=== PATIENT | female | born 1950 | race Caucasian/White ===

== ENCOUNTER 2023-01-31 21:33 | Inpatient (IN) | payer MEDICARE, MEDICAID ==
[~2023-01-31] VITALS: Ht 160 cm; Wt 68.0 kg
[~2023-01-31 21:33] MED LIST: ADVIL
[2023-01-31 23:22] LABS: BASOPHILS % 0.5 % (0.0-2.0); EOSINOPHILS % 3.9 % (0.0-5.0); HEMATOCRIT. 28.2 % (36.0-48.0); HEMOGLOBIN. 9.6 g/dL (12.0-16.0); LYMPHOCYTES % 16.1 % (20.0-50.0); MEAN CORPUSCULAR HEMOGLOBIN 35.4 pg (28.0-32.0); MEAN CORPUSCULAR VOLUME 104.4 fL (81.0-99.0); MEAN PLATELET VOLUME 9.6 fl (7.4-10.4); MONOCYTES % 12.2 % (2.0-8.0); NEUTROPHILS % 67.3 % (40.0-76.0); PLATELET 84 x1000/uL (130-400); RED CELL DISTRIBUTION WIDTH 16.8 % (11.6-14.6)
[2023-01-31 23:23] LABS: CHLORIDE 112 mEq/L (98-107)
[2023-01-31 23:34] LABS: ETHANOL BLOOD < 10 mg/dL
[2023-02-01 00:31] LABS: CLARITY URINE CLEAR (CLEAR); COLOR URINE YELLOW (YELLOW); KETONES URINE NEGATIVE (NEGATIVE); LEUKOCYTE ESTERASE URINE TRACE (NEGATIVE); NITRITE URINE NEGATIVE (NEGATIVE); OCCULT BLOOD URINE NEGATIVE (NEGATIVE); PROTEIN URINE NEGATIVE (NEGATIVE); SPECIFIC GRAVITY URINE 1.017 (1.005-1.030)
[2023-02-01] MEDS ORDERED: LACTULOSE 20G/30ML UDC PO NR ×2 (01:45→08:45)
[2023-02-01] MEDS ORDERED: SODIUM CHLORIDE 0.45% 1,000 ML IV NR (04:00)
[2023-02-01] MEDS ORDERED: DEXTROSE 50% WATER 50ML SYRINGE IV PRN (04:00)
[2023-02-01] MEDS ORDERED: ONDANSETRON HCL 4MG/2ML INJ IV PRN (04:00)
[2023-02-01] MEDS ORDERED: IPRATROPIUM/ALBUTEROL 0.5-3(2.5)MG/3ML NEB HHN PRN (04:00)
[2023-02-01] MEDS ORDERED: CLONIDINE 0.1MG TABLET PO PRN (04:00)
[2023-02-01 05:04] LABS: BASOPHILS % 0.3 % (0.0-2.0); EOSINOPHILS % 3.3 % (0.0-5.0); HEMATOCRIT. 28.7 % (36.0-48.0); HEMOGLOBIN. 9.8 g/dL (12.0-16.0); LYMPHOCYTES % 18.2 % (20.0-50.0); MEAN CORPUSCULAR HEMOGLOBIN 35.7 pg (28.0-32.0); MEAN CORPUSCULAR VOLUME 104.2 fL (81.0-99.0); MEAN PLATELET VOLUME 9.8 fl (7.4-10.4); MONOCYTES % 10.4 % (2.0-8.0); NEUTROPHILS % 67.8 % (40.0-76.0); PLATELET 86 x1000/uL (130-400); RED BLOOD CELL COUNT 2.76 mill/uL (4.2-5.4); RED CELL DISTRIBUTION WIDTH 16.5 % (11.6-14.6)
[2023-02-01 05:29] LABS: CHLORIDE 111 mEq/L (98-107)
[2023-02-01 05:38] LABS: INR 1.4; PARTIAL THROMBOPLASTIN TIME 36.6 sec (23.4-31.0); PROTHROMBIN TIME 14.7 sec (9.6-11.0)
[2023-02-01 05:43] LABS: FERRITIN 23 ng/mL (10-291)
[2023-02-01 05:50] LABS: T4 FREE 1.29 ng/dL (0.76-1.46)
[2023-02-01 05:53] LABS: VITAMIN B12 SERUM 817 pg/mL (211-911)
[2023-02-01] MEDS ORDERED: LACTULOSE 20G/30ML UDC PO SCH (06:00)
[2023-02-01] MEDS: INSULIN LISPRO 100 UNITS/ML SUBCUT SCH ×4 (08:20→21:00)
[2023-02-01] MEDS: LEVOTHYROXINE SODIUM 125MCG TABLET PO SCH (08:49)
[2023-02-01] MEDS: PANTOPRAZOLE SODIUM 40 MG/VIAL IV SCH (09:00)
[2023-02-01] MEDS: RIFAXIMIN 550 MG TABLET PO SCH ×2 (09:00→21:55)
[2023-02-01] MEDS: BLOOD SUGAR DIAGNOSTIC STRIP TEST SCH ×4 (09:00→21:00)
[2023-02-01 11:30] VITALS: BP 135/69
[2023-02-01] MEDS: LACTULOSE 20G/30ML UDC PO SCH ×2 (14:00→22:00)
[2023-02-01 16:00] VITALS: BP 135/69
[2023-02-01] MEDS: ACETAMINOPHEN 650MG/20.3ML UDC GT PRN (23:09)
[2023-02-02] MEDS: LACTULOSE 20G/30ML UDC PO SCH ×3 (06:00→21:51)
[2023-02-02] MEDS: BLOOD SUGAR DIAGNOSTIC STRIP TEST SCH ×4 (06:54→21:51)
[2023-02-02] MEDS: LEVOTHYROXINE SODIUM 125MCG TABLET PO SCH (07:05)
[2023-02-02] MEDS: INSULIN LISPRO 100 UNITS/ML SUBCUT SCH ×4 (07:50→21:00)
[2023-02-02 08:00] VITALS: BP 107/45
[2023-02-02] MEDS: PANTOPRAZOLE SODIUM 40 MG/VIAL IV SCH (09:00)
[2023-02-02] MEDS: RIFAXIMIN 550 MG TABLET PO SCH ×2 (09:00→21:50)
[2023-02-02 12:00] VITALS: BP 126/43
[2023-02-02 16:00] VITALS: BP 115/57
[2023-02-03] MEDS: LACTULOSE 20G/30ML UDC PO SCH ×3 (06:00→21:35)
[2023-02-03] MEDS: INSULIN LISPRO 100 UNITS/ML SUBCUT SCH ×4 (07:50→21:44)
[2023-02-03 08:00] VITALS: BP 116/53
[2023-02-03] MEDS: BLOOD SUGAR DIAGNOSTIC STRIP TEST SCH ×4 (08:04→21:32)
[2023-02-03] MEDS: LEVOTHYROXINE SODIUM 125MCG TABLET PO SCH (08:16)
[2023-02-03] MEDS: PANTOPRAZOLE 40MG DR TABLET PO SCH (08:16)
[2023-02-03] MEDS: RIFAXIMIN 550 MG TABLET PO SCH ×2 (08:17→21:35)
[2023-02-03 12:00] VITALS: BP 126/59
[2023-02-03 12:32] LABS: BASOPHILS % 0.5 % (0.0-2.0); EOSINOPHILS % 2.9 % (0.0-5.0); HEMATOCRIT. 29.3 % (36.0-48.0); HEMOGLOBIN. 9.9 g/dL (12.0-16.0); LYMPHOCYTES % 18.9 % (20.0-50.0); MEAN CORPUSCULAR HEMOGLOBIN 35.3 pg (28.0-32.0); MEAN CORPUSCULAR VOLUME 104.2 fL (81.0-99.0); MEAN PLATELET VOLUME 9.2 fl (7.4-10.4); NEUTROPHILS % 66.7 % (40.0-76.0); PLATELET 86 x1000/uL (130-400); RED BLOOD CELL COUNT 2.81 mill/uL (4.2-5.4); RED CELL DISTRIBUTION WIDTH 16.4 % (11.6-14.6)
[2023-02-03 13:34] LABS: CHLORIDE 111 mEq/L (98-107)
[2023-02-03 16:00] VITALS: BP 129/64
[2023-02-03 20:00] VITALS: BP 121/43
[2023-02-03] MEDS ORDERED: ZOLPIDEM TARTRATE 5MG TABLET PO PRN (22:30)
[2023-02-03] MEDS ORDERED: NALOXONE HCL 0.4MG/ML VIAL IV PRN (22:30)
[2023-02-03] MEDS: HYDROCODONE/ACETAMINOPHEN 5/325MG TABLET PO PRN (22:38)
[2023-02-04] VITALS: BP 113/62
[2023-02-04 04:00] VITALS: BP 113/49
[2023-02-04 05:37] LABS: CHLORIDE 110 mEq/L (98-107)
[2023-02-04 05:55] LABS: BASOPHILS % 0.4 % (0.0-2.0); EOSINOPHILS % 3.7 % (0.0-5.0); HEMATOCRIT. 29.9 % (36.0-48.0); HEMOGLOBIN. 10.3 g/dL (12.0-16.0); LYMPHOCYTES % 18.1 % (20.0-50.0); MEAN CORPUSCULAR HEMOGLOBIN 35.9 pg (28.0-32.0); MEAN CORPUSCULAR VOLUME 103.6 fL (81.0-99.0); MEAN PLATELET VOLUME 9.9 fl (7.4-10.4); MONOCYTES % 12.7 % (2.0-8.0); NEUTROPHILS % 65.1 % (40.0-76.0); PLATELET 92 x1000/uL (130-400); RED BLOOD CELL COUNT 2.89 mill/uL (4.2-5.4); RED CELL DISTRIBUTION WIDTH 16.3 % (11.6-14.6)
[2023-02-04] MEDS: LACTULOSE 20G/30ML UDC PO SCH (06:00)
[2023-02-04] MEDS ORDERED: LACTULOSE ENEMA 1,000ML BOTTLE PR ONE (07:00)
[2023-02-04] MEDS: BLOOD SUGAR DIAGNOSTIC STRIP TEST SCH ×2 (07:20→12:20)
[2023-02-04] MEDS: INSULIN LISPRO 100 UNITS/ML SUBCUT SCH ×2 (07:50→13:31)
[2023-02-04 08:00] VITALS: BP 117/63
[2023-02-04] MEDS: LEVOTHYROXINE SODIUM 125MCG TABLET PO SCH (08:57)
[2023-02-04] MEDS: PANTOPRAZOLE 40MG DR TABLET PO SCH (08:57)
[2023-02-04] MEDS: RIFAXIMIN 550 MG TABLET PO SCH (08:57)
[2023-02-04] MEDS ORDERED: LACTULOSE 300 ML in WATER FOR IRRIGATION,STERILE 700 ML PR SCH (09:00)
[2023-02-04] MEDS: ACETAMINOPHEN 650MG/20.3ML UDC GT PRN (09:01)
[2023-02-04] MEDS ORDERED: PANT40TA51 PO (10:16)
[2023-02-04] MEDS ORDERED: RIFA550T PO (10:16)
[2023-02-04] MEDS ORDERED: LEVO125T8 PO (10:16)
[2023-02-04] MEDS ORDERED: LACT10SO7 PO (10:16)
[2023-02-04 11:30] VITALS: BP 117/68
[2023-02-04 12:00] VITALS: BP 102/60
[2023-02-04 12:26] VITALS: BP 123/62
[2023-02-04] MEDS: HYDROCODONE/ACETAMINOPHEN 5/325MG TABLET PO PRN (12:26)
== END 2023-02-04 17:00 | DRG 436 ==
LOC: ER 21:33 → 6EST 02-01 02:42
PROVIDERS: ADMIT Internal Medicine; ATTEND Internal Medicine
DX: C22.0 Liver cell carcinoma (principal); E44.0 Moderate protein-calorie malnutrition; K76.82 Hepatic encephalopathy; E11.9 Type 2 diabetes mellitus without complications; E03.9 Hypothyroidism, unspecified; D64.9 Anemia, unspecified; D69.6 Thrombocytopenia, unspecified; D72.819 Decreased white blood cell count, unspecified; Z68.26 Body mass index [BMI] 26.0-26.9, adult; Z85.05 Personal history of malignant neoplasm of liver
CPT/HCPCS: 36415; 71045; 76700; 80048; 80053; 80061; 80320; 81003; 82105; 82140; 82550; 82607; 82728; 82746; 82962; 83036; 83540; 83550; 83605; 83735; 83880; 84100; 84134; 84145; 84439; 84443; 84484; 85025; 85379; 93306; 93970; 97162; 99285; A6261; J1815; G0480

== ENCOUNTER 2023-02-07 01:28 | Emergency (ER) | payer MEDICARE, MEDICAID ==
[~2023-02-07] VITALS: Ht 170.2 cm; Wt 72.0 kg
[~2023-02-07 01:28] MED LIST changes: +LACT10SO7 PO; +LEVO125T8 PO; +PANT40TA51 PO; +RIFA550T PO
[2023-02-07 01:31] VITALS: BP 108/56
== END 2023-02-07 05:05 | disposition home or self-care (01) ==
LOC: ER 01:28
DX: S09.93XA Unspecified injury of face, initial encounter (principal); W18.30XA Fall on same level, unspecified, initial encounter; Y93.89 Activity, other specified; Y92.89 Other specified places as the place of occurrence of the external cause; Y99.8 Other external cause status
CPT/HCPCS: 99283